=== PATIENT | male | born 1975 | race Native Hawaiian/Other Pacific Islander ===

== ENCOUNTER 2017-06-29 17:27 | Inpatient (IN) | payer OTHER ==
[~2017-06-29] VITALS: Ht 182.9 cm; Wt 83.2 kg
[2017-06-29 17:30] VITALS: BP 122/89; TEMP 98.3
[2017-06-29 18:16] LABS: PLATELET COUNT 259 K/uL (142-355)
[2017-06-29 18:19] LABS: POTASSIUM 3.6 mmol/L (3.6-5.2); SODIUM 135 mmol/L (136-145)
[2017-06-29 23:59] VITALS: BP 131/77; TEMP 98.2; Ht 182.9 cm; Wt 83.2 kg
[2017-06-30 04:00] VITALS: BP 125/72; TEMP 98.2
[2017-06-30 04:44] LABS: PLATELET COUNT 250 K/uL (142-355)
[2017-06-30 05:34] LABS: POTASSIUM 3.3 mmol/L (3.6-5.2); SODIUM 134 mmol/L (136-145)
[2017-06-30 08:00] VITALS: BP 120/67; TEMP 98.6
[2017-06-30 12:00] VITALS: BP 113/72; TEMP 98.4
[2017-06-30 16:00] VITALS: BP 110/77; TEMP 98.3
[2017-06-30 20:00] VITALS: BP 116/71; TEMP 98
[2017-07-01] VITALS (11 sets, daily range): BP systolic 119–156; BP diastolic 68–87; TEMP 97.4–98.6
[2017-07-01 05:51] LABS: PLATELET COUNT 225 K/uL (142-355)
[2017-07-01 05:55] LABS: POTASSIUM 3.9 mmol/L (3.6-5.2); SODIUM 135 mmol/L (136-145)
== END 2017-07-01 19:46 | disposition short-term general hospital (02) | DRG 419 ==
LOC: ED 17:27 → MED/SURG 22:14
PROVIDERS: Student in an Organized Health Care Education/Training Program
PROC: 0FT44ZZ Resection of Gallbladder, Percutaneous Endoscopic Approach (ICD-10-PCS; principal; 2017-07-01)
PROC: BF11YZZ Fluoroscopy of Biliary and Pancreatic Ducts using Other Contrast (ICD-10-PCS; 2017-07-01)
DX: K81.0 Acute cholecystitis (principal)
CPT/HCPCS: 36415; 80053; 80074; 81000; 82150; 83690; 85027; 96365; 96366; 96367; 96374; 96375; 99284; J0132; J0330; J0690; J1170; J1610; J1644; J1885; J2001; J2250; J2405; J2704; J2710; J3010; J3480; J3490; S0028

== ENCOUNTER 2019-04-21 03:28 | Emergency (ER) | payer OTHER ==
[~2019-04-21] VITALS: Ht 182.9 cm; Wt 86.2 kg
[2019-04-21 04:55] VITALS: BP 152/95; TEMP 98.1
== END 2019-04-21 04:55 | disposition home or self-care (01) ==
LOC: ED 03:28
DX: S03.03XA Dislocation of jaw, bilateral, initial encounter (principal)
CPT/HCPCS: 99281